=== PATIENT | female | born 2000 | race Two or more races ===

== ENCOUNTER 2023-11-20 16:56 | Emergency (ER) | payer SELFPAY ==
[~2023-11-20] VITALS: Ht 162.6 cm; Wt 70.5 kg
[2023-11-20 17:31] VITALS: BP 100/60; PULSE 81; RESP 16; O2SAT 96
[2023-11-20 20:30] LABS: Urine Amorphous Crystal FEW /hpf (None Seen); Urine Bacteria FEW /hpf (None Seen); Urine Blood Negative /uL (Negative); Urine Clarity Clear (Clear); Urine Color Light-Yellow (Yellow); Urine Mucus FEW (None Seen); Urine Protein, UAD Negative (Negative); Urine Specific Gravity 1.018 (1.001-1.035); Urine Urobilinogen Normal (Negative); Urine WBC 1 /hpf (0 - 5); Urine pH 6.5 (5.0-9.0)
== END 2023-11-20 22:45 | disposition left against medical advice (07) ==
LOC: ER 16:56
DX: O26.891 Other specified pregnancy related conditions, first trimester (principal); R30.9 Painful micturition, unspecified; Z3A.10 10 weeks gestation of pregnancy; Z53.21 Procedure and treatment not carried out due to patient leaving prior to being seen by health care provider
CPT/HCPCS: 81001

== ENCOUNTER 2024-06-16 06:29 | Observation (INO) | payer MEDICAID ==
[2024-06-16] MEDS ORDERED: PREN-96 PO (13:27)
--- NOTE | 2024-06-16 14:37 | DVH ---
CLINICAL HISTORY: Term Gestation COMPARISON: None TECHNIQUE: biophysical profile was performed. Transabdominal sonographic images of the fetus we re obtained. FINDINGS: The fetus is in cephalic position. heart rate measures 137 BPM. Amniotic fluid index measures 13.2 cm. The placenta is fundal in position. No evidence of placenta previa or abruption vis ualized. Suspected nuchal cord BPP profile is an overall score of 8/8, with 2/2 points for breathing, with at least one episode of breathing over a 30 second duration during a 30 minute observation, 2/2 points for m ovements, with 3 or more discrete body or limb movements, 2/2 points for tone, with one or more episodes of extremity extension with return to flexion, or opening and closing of hand, and 2/ 2 points for amniotic fluid, with at least 1 pocket of amniotic fluid that measures 2 cm in 2 perpend icular planes. IMPRESSION: 1. BPP score of 8/8. 2. Possible nuchal cord.
--- NOTE | 2024-06-18 10:52 | DVHDS2 ---
Physician Discharge Progress N Final Diagnosis: postdates Operations or Procedures: Operations or Procedures nst,yeyo refused induction Condition on Discharge: Good Disposition: Home Discharge Instructions: Diet: Regular Activity: No Restrictions, As Tolerated Medications: na Follow Up Care: Specialist: 2d Discharge Statement: "Patient was advised to return to the ER or call 911 if any headaches, dizziness, shortness of breath, chest pain, abdominal pain, bleeding, fevers, or worsening of medical condition. Patient was counseled about treatment plan, medications, possible side effects, patientverbalized understanding. All questions were answered to the best of my ability. This discharge took greater then 30 minutes in planning, reviewing document ation, counseling the patient, and discussing with other team members." TERRY WEEKS DO Jun 18, 2024 10:52
== END 2024-06-16 14:50 | disposition home or self-care (01) ==
LOC: LDRP 13:07
PROVIDERS: ADMIT Obstetrics & Gynecology; ATTEND Obstetrics & Gynecology
DX: O48.0 Post-term pregnancy (principal); Z3A.40 40 weeks gestation of pregnancy; Z98.890 Other specified postprocedural states; Z79.899 Other long term (current) drug therapy
CPT/HCPCS: 59025; 76818; 81002; 94760; G0378

== ENCOUNTER 2024-06-17 10:27 | Inpatient (IN) | payer MEDICAID ==
[~2024-06-17] VITALS: Ht 162.6 cm; Wt 81.6 kg
[~2024-06-17 10:27] MED LIST: PREN-96 PO
[2024-06-17] MEDS ORDERED: BUTORPHANOL TARTRATE 2 MG/1 ML VIAL IV PRN ×2 (10:30)
[2024-06-17] MEDS ORDERED: DERMOPLAST 60ML BOTTLE TOP PRN (10:30)
[2024-06-17] MEDS ORDERED: LIDOCAINE 2%HCL (LOCAL ANESTH.) INJ 20ML MDV IJ PRN (10:30)
[2024-06-17] MEDS ORDERED: PHISODERM TOP SOLN 240ML BTL TOP PRN (10:30)
[2024-06-17] MEDS ORDERED: WITCH HAZEL-GLYCERIN PAD TOP PRN (10:30)
[2024-06-17 12:10] LABS: Basophils # (auto) 0 10 ^3/uL (0-0.2); Basophils % (auto) 0.4 % (0.0-2.0); Eosinophils # (auto) 0 10 ^3/uL (0-0.8); Eosinophils % (auto) 0.6 % (0.0-7.0); Hematocrit 39.4 % (36.0-46.0); Lymphocytes # (auto) 1.7 10 ^3/uL (0.4-5.4); Lymphocytes % (auto) 20.4 % (10.0-50.0); Mean Corpuscular Hemoglobin 28.9 pg (28.0-32.0); Mean Corpuscular Hgb Conc. 33.1 g/dL (32.0-36.0); Mean Corpuscular Volume 87.3 fL (80.0-100.0); Monocytes # (auto) 0.7 10 ^3/uL (0-1.3); Monocytes % (auto) 8.7 % (0.0-12.0); Neutrophils # (auto) 5.7 10 ^3/uL (1.6-8.6); Neutrophils % (auto) 69.9 % (37.0-80.0); Platelet Count (auto) 205 10^3/uL (140-450); Red Blood Cells 4.51 10^6/uL (4.0-5.20); Red Cell Distribution Width 14.6 % (11.8-14.3); White Blood Cell 8.1 10^3/uL (4.4-10.8)
[2024-06-17 12:29] LABS: Alkaline Phosphatase 163 U/L (46-116); Anion Gap 9 (5-15); Aspartate Aminotransferase 8 U/L (13-40); Calcium 9.6 mg/dL (8.7-10.4); Carbon Dioxide 23 mmol/L (20-31); Chloride 106 mmol/L (98-107); Glucose 69 mg/dL (74-106); INR 0.95 (0.9-1.15); Partial Thromboplastin Time 28.5 SEC (24.5-34.5); Prothrombin Time 10.1 sec (9.3-11.8); Sodium 138 mmol/L (136-145)
[2024-06-17 12:30] LABS: Bilirubin, Total 0.3 mg/dL (0.2-1.0); Total Protein 6.8 g/dL (5.7-8.2)
[2024-06-17 12:35] LABS: Alanine Aminotransferase < 9 U/L (7-40); BUN/Creatinine Ratio 13.5 (10.0-20.0); Blood Urea Nitrogen < 5 mg/dL (9-23)
[2024-06-17 12:38] LABS: Urine Bacteria None Seen /hpf (None Seen)
[2024-06-17 12:49] LABS: Urine Amorphous Crystal FEW /hpf (None Seen); Urine Blood Negative /uL (Negative); Urine Clarity Turbid (Clear); Urine Color Light-Yellow (Yellow); Urine Mucus FEW (None Seen); Urine Protein, UAD Negative (Negative); Urine Specific Gravity 1.015 (1.001-1.035); Urine Urobilinogen Normal (Negative); Urine WBC 8 /hpf (0 - 5); Urine pH 6.5 (5.0-9.0)
--- NOTE | 2024-06-17 12:50 | DVHHP2 ---
OB CC & HPI Date Date of Admission: Jun 17, 2024 Patient Identification: : 1 Para: 0 EDC: Jun 16, 2024 EGA: 40.1wks Chief Complaints: Reason for admission: induction of labor (NCx1) Indication for induction: post dates History of Present Complaints 24yo IUP@40.1wks presents for induction of labor. Denies UCs/LOF/VB/HENDERSON/vision changes/RUQ pain. Endorses +FM. PNC: Routine PNC at [facility] OB, adequate visits, PNC uncomplicated. GTT wnl, dating based on LMP c/w 9wk sono, GBS negative. OB hx: x1, uncomplicated Past Medical History Cardiac: No pertinent Hx Pulmonary: No pertinent Hx Central Nervous System: No pertinent Hx GI: No pertinent Hx Hemotology/Oncology: No pertinent Hx Hepatobiliary: No pertinent Hx Psychiatric: No pertinent Hx Musculoskeletal: No pertinent Hx Rheumotologic: No pertinent Hx Infectious Disease: No peritnent Hx ENT: No pertinent Hx Renal/: No pertinent Hx Endocrine: No pertinent Hx Dermatology: No pertinent Hx Past Surgical History: Other (right ovarian cystectomy in [place] in 2019) OB History OB History Care: Good Care Ultrasounds: Normal mid trimester US Obstetrical Complications: None Medical Complications: None Allergies: Coded Allergies: NO KNOWN ALLERGIES (Unverified , 06/17/24) Home Meds Reported Medications Vit W/ Ferrous Fumara ( One Daily) Daily Tab, 1 TAB PO DAILY, #90 TAB 3 Refills 06/16/24 Current Medications Current Medications Medications (Trade) Dose Ordered Sig/Jesus Manuel Route PRN Reason Start Time Stop Time Status Last Admin Lactated Ringer's 1,000 ml @ 125 mls/hr Q8H IV 06/17/24 10:30 Witch Ragini (Tucks) 1 pad PRN PRN TOP PERINEAL AREA DISCOMFORT 06/17/24 10:30 Sodium Lauryl Sulfate (Phisoderm) 240 ml PRN PRN TOP PERINEAL AREA DISCOMFORT 06/17/24 10:30 Benzocaine (Dermoplast) 1 applic PRN PRN TOP PERINEAL AREA DISCOMFORT 06/17/24 10:30 Butorphanol Tartrate (Stadol Injection) 1 mg Q4HPRN PRN IV MODERATE PAIN (4-6 PAIN SCALE) 06/17/24 10:30 Butorphanol Tartrate (Stadol Injection) 2 mg Q4HPRN PRN IV SEVERE PAIN (7-10 PAIN SCALE) 06/17/24 10:30 Misoprostol (Cytotec) 50 mcg Q4HPRN PRN PO CERVICAL RIPENING 06/17/24 10:30 Lidocaine HCl (Xylocaine) 20 ml ONCE PRN IJ PERINEAL AREA DISCOMFORT 06/17/24 10:30 Family & Social History Family/Social History Past Family/Social History: denies Blood Type: O+ Rubella: immune RPR/VDRL: Negative GBS Status: Negative HBsAG: Negative Review of Systems Constitutional: No symptom reported Ears, Nose, & Throat: No symptom reported Eyes: No symptom reported Pulmonary/Respiratory: No symptom reported Cardiovascular: No symptom reported Gastrointestinal: No symptom reported Genitourinary: No symptom reported Musculoskeletal: No symptom reported Skin: No symptom reported Psychiatric: No symptom reported Endocrine: No symptom reported Hemotologic/Lymphatic: No symptom reported OB Admission Exam Physical Exam Vitals: VSS EFW in office 2 weeks ago: 7lbs 3oz, vertex HEENT: TMs Normal, Fontanelles Normal, Nasal Mucosa Normal, Eyes non-injected, Oropharynx Normal, PERRLA, Moist Membranes, EOMI Heart: Rhythm Normal Lungs: Clear Abdomen: Gravid Extremities: Normal Reflexes: Normal Pelvic Exam: SVE by RN: closed/thick/high Membranes: Intact Heart Rate: 130's Accelerations: Accelerations Present Decelerations: No Decelerations Teacher Advisor Variability: Average (6-25) Contractions on Admission: >10 Minutes Apart Intensity: Mild OB Plan Plan Admitting Diagnosis: IOL for postdates and NCx1 Plan: Induction Induction Methd: Misoprostol protocol Other Plan: A: 24yo IUP@40.1wks Induction of Labor Category I EFM Intact Membranes GBS negative P: Admit to L&D Informed consent obtained Discussed risks, benefits, alternatives of IOL for post dates/NCx1 with pt. Pt consents to IOL with PO cytotec. monitoring per order Routine labs ordered Pain mgmt PRN Frequent position changes in and out of bed encouraged Limit SVE unless necessary Intrauterine resuscitation PRN Anticipate CNM will consult with LYNN Hairston CNM Jun 17, 2024 12:50
[2024-06-17] MEDS: LACTATED RINGER'S 1,000 ML IV SCH (12:51)
[2024-06-17 13:05] LABS: Amphetamine Screen, Urine Neg (NEGATIVE); Barbiturate Scree,Urine Neg (NEGATIVE); Benzodiazephine Screen, Urine Neg (NEGATIVE)
[2024-06-17 13:06] LABS: Cocaine Screen, Urine Neg (NEGATIVE)
[2024-06-17 13:07] LABS: Cannabinoid Screen, Urine Neg (NEGATIVE); Opiate Scree,Urine Neg (NEGATIVE); Phencyclidine Screen, Urine Neg (NEGATIVE)
[2024-06-17] MEDS: miSOPROStol 50 MCG per PRE-CUT 1/2 TAB PO PRN (13:34)
--- NOTE | 2024-06-17 14:35 | DVHPN2 ---
Chief Complaints Patient reports: No new complaints Nursing reports: No new complaints Objective Medications Current Medications Medications (Trade) Dose Ordered Sig/Jesus Manuel Route PRN Reason Start Time Stop Time Status Last Admin Benzocaine (Dermoplast) 1 applic PRN PRN TOP PERINEAL AREA DISCOMFORT 06/17/24 10:30 Butorphanol Tartrate (Stadol Injection) 1 mg Q4HPRN PRN IV MODERATE PAIN (4-6 PAIN SCALE) 06/17/24 10:30 Butorphanol Tartrate (Stadol Injection) 2 mg Q4HPRN PRN IV SEVERE PAIN (7-10 PAIN SCALE) 06/17/24 10:30 Lactated Ringer's 1,000 ml @ 125 mls/hr Q8H IV 06/17/24 10:30 06/17/24 12:51 Lidocaine HCl (Xylocaine) 20 ml ONCE PRN IJ PERINEAL AREA DISCOMFORT 06/17/24 10:30 Misoprostol (Cytotec) 50 mcg Q4HPRN PRN PO CERVICAL RIPENING 06/17/24 10:30 06/17/24 13:34 Sodium Lauryl Sulfate (Phisoderm) 240 ml PRN PRN TOP PERINEAL AREA DISCOMFORT 06/17/24 10:30 Witch Ragini (Tucks) 1 pad PRN PRN TOP PERINEAL AREA DISCOMFORT 06/17/24 10:30 Others ve-ft/thick,high Studies Laboratory Tests 06/17/24 11:35 Test 06/17/24 11:35 Range/Units Serum Glucose 69 L 74-106 mg/dL Ass/Plan Assessment iol Plan rec one cytotec MAURICIOTERRY RUSSELL DO Jun 17, 2024 14:35
--- NOTE | 2024-06-17 20:28 | DVH ---
EXAM: US BIOPHYSICAL PROFILE HISTORY: postdates COMPARISON: US BIOPHYSICAL PROFILE on DOS: 06/16/24 TECHNIQUE: Multiple transabdominal real-time grayscale sonographic images through the gravid uterus of the fetus with duplex Doppler color flow and M-mode spectral analysis Findings/Impression: Single live intrauterine in vertex presentation with heart rate of 133 bpm. Sonograph er notes visualized activity and respirations. Biophysical profile was performed with 2 points for respirations, 2 points for movement, 2 points for tone and 2 points for amniotic fluid index. Biophysical profile score of 8/8. Amniotic fluid is within normal limits with MARY LOU 12.2 cm and MVP 4.5 cm. Nuchal cord. Normal MARY LOU (5-25 cm) Normal MVP (2-8 cm)
[2024-06-18 05:08] LABS: RPR Non Reactive (Non Reactive)
--- NOTE | 2024-06-18 11:20 | DVHDS2 ---
Physician Discharge Progress N Final Diagnosis: postdates Operations or Procedures: Operations or Procedures nst,sono Other Interventions Other Interventions pt changed her mind about induction,she recieved one cytotec and not feeling any ucs she wants to deliver in [facility] where family is and pt insists on going there .pt urged to get induced copies of sono/nuchal cord findings given to pt so she can present it to [facility] .also made her an apt for 06/19 just incase they dont induce her .pt expressed full understanding Condition on Discharge: Good Disposition: Home Discharge Instructions: Diet: Regular Activity: No Restrictions, As Tolerated Medications: Follow Up Care: Specialist: 2d Discharge Statement: "Patient was advised to return to the ER or call 911 if any headaches, dizziness, shortness of breath, chest pain, abdominal pain, bleeding, fevers, or worsening of medical condition. Patient was counseled about treatment plan, medications, possible side effects, patientverbalized understanding. All questions were answered to the best of my ability. This discharge took greater then 30 minutes in planning, reviewing documentation, counseling the patient, and discussing with other team members." TERRY WEEKS DO Jun 18, 2024 11:20
== END 2024-06-17 21:55 | disposition home or self-care (01) | DRG 566 ==
LOC: LDRP 10:27
PROVIDERS: ADMIT Obstetrics & Gynecology; ATTEND Obstetrics & Gynecology
PROC: 3E0DXGC Introduction of Other Therapeutic Substance into Mouth and Pharynx, External Approach (ICD-10-PCS; principal; 2024-06-17)
DX: O48.0 Post-term pregnancy (principal); Z3A.40 40 weeks gestation of pregnancy
CPT/HCPCS: 36415; 59025; 76818; 80053; 80307; 81001; 81002; 85025; 85610; 85730; 86592; 86780; 86803; 86850; 86900; 86901; 87340; 94762; 96360; 96361; G0378

== ENCOUNTER 2025-03-10 09:20 | Outpatient (CLI) | payer MEDICAID ==
[2025-03-10 10:26] LABS: Hematocrit 39.1 % (36.0-46.0); Hemoglobin 13.1 g/dL (12.2-16.2); Mean Corpuscular Hemoglobin 27.9 pg (28.0-32.0); Mean Corpuscular Volume 83.5 fL (80.0-100.0); Nucleated Red Blood Cells % 0.1 %
[2025-03-10 10:35] LABS: Free T4 (Free Thyroxine) 1.09 ng/dL (0.89-1.76)
[2025-03-10 10:47] LABS: Alanine Aminotransferase 13 U/L (7-40); Alkaline Phosphatase 58 U/L (46-116); Anion Gap 7 (5-15); BUN/Creatinine Ratio 15.8 (10.0-20.0); Bilirubin, Total 0.5 mg/dL (0.2-1.0); Calcium 9.4 mg/dL (8.7-10.4); Carbon Dioxide 27 mmol/L (20-31); Chloride 106 mmol/L (98-107); Cholesterol 168 mg/dL (< 200); Glucose 86 mg/dL (74-106); HDL Cholesterol 44 mg/dL (40-59); Potassium 4.1 mmol/L (3.5-5.1); Sodium 140 mmol/L (136-145); Total Protein 7.3 g/dL (5.7-8.2); Triglycerides 105 mg/dL (< 150)
[2025-03-10 10:49] LABS: Albumin 4.9 g/dL (3.2-4.8); Blood Urea Nitrogen 9 mg/dL (9-23)
[2025-03-10 11:58] LABS: Urine Protein, UAD Negative (Negative)
== END 2025-03-10 17:00 | disposition home or self-care (01) ==
LOC: LAB 09:20
PROVIDERS: ATTEND Internal Medicine
DX: Z00.01 Encounter for general adult medical examination with abnormal findings (principal)
CPT/HCPCS: 36415; 80053; 80061; 81001; 82306; 83036; 84439; 84443; 84480; 85025